=== PATIENT | female | born 1965 | race Caucasian/White ===

== ENCOUNTER 2021-07-30 11:19 | Outpatient (CLI) | payer OTHER | END 2021-07-30 11:20 | disposition home or self-care (01) | LOC: CSHMAMMO 11:19 | PROVIDERS: ATTEND Internal Medicine | DX: Z12.31 Encounter for screening mammogram for malignant neoplasm of breast (principal); Z80.3 Family history of malignant neoplasm of breast | CPT/HCPCS: 77063; 77067 ==

== ENCOUNTER 2023-10-21 13:26 | Outpatient (CLI) | payer OTHER | END 2023-10-21 13:27 | disposition home or self-care (01) | LOC: CSHMAMMO 13:26 | DX: Z12.31 Encounter for screening mammogram for malignant neoplasm of breast (principal); Z80.3 Family history of malignant neoplasm of breast | CPT/HCPCS: 77063; 77067 ==